=== PATIENT | male | born 1960 | race Caucasian/White ===

== ENCOUNTER 2016-07-31 12:27 | Emergency (ER) | payer MEDICARE, SELFPAY | END 2016-07-31 14:42 | disposition home or self-care (01) | LOC: ER 12:27 | DX: I87.2 Venous insufficiency (chronic) (peripheral) (principal); M79.604 Pain in right leg; M79.605 Pain in left leg; E11.9 Type 2 diabetes mellitus without complications; I10 Essential (primary) hypertension; J44.9 Chronic obstructive pulmonary disease, unspecified; Z95.5 Presence of coronary angioplasty implant and graft; Z79.899 Other long term (current) drug therapy; Z79.02 Long term (current) use of antithrombotics/antiplatelets; Z79.82 Long term (current) use of aspirin; Z79.84 Long term (current) use of oral hypoglycemic drugs | CPT/HCPCS: 96372; 99282-25; 99283 ==

== ENCOUNTER 2016-10-30 11:55 | Emergency (ER) | payer MEDICARE, OTHER | END 2016-10-30 14:27 | disposition home or self-care (01) | LOC: ER 11:55 | DX: S23.41XA Sprain of ribs, initial encounter (principal); X50.3XXA Overexertion from repetitive movements, initial encounter; R91.1 Solitary pulmonary nodule; J44.9 Chronic obstructive pulmonary disease, unspecified; E11.9 Type 2 diabetes mellitus without complications; F17.210 Nicotine dependence, cigarettes, uncomplicated; Z95.5 Presence of coronary angioplasty implant and graft; Z79.899 Other long term (current) drug therapy; Z79.02 Long term (current) use of antithrombotics/antiplatelets; Z79.891 Long term (current) use of opiate analgesic | CPT/HCPCS: 71250; 96372; 99283-25; 99284 ==